=== PATIENT | female | born 1950 | race Caucasian/White ===

== ENCOUNTER → 2017-12-02 | Outpatient (CLI) | payer OTHER ==
[~2017-12-02] MED LIST: ASPI-183 PO; LEVO50TA4 PO; METF500T PO; MULT-65 PO; ROSU1TAB8 PO; VITA2000 PO; VITACAP7 PO
[2017-12-02 09:19] LABS: AUTOMATED NEUTROPHIL # 3.2 TH/MM3 (1.8-7.7); BASOPHIL # 0.1 TH/MM3 (0-0.2); BASOPHIL % 0.8 % (0.0-2.0); EOSINOPHIL # 0.2 TH/MM3 (0-0.4); EOSINOPHIL % 2.7 % (0.0-4.0); HEMATOCRIT 43.3 % (35.0-46.0); HEMOGLOBIN 14.9 GM/DL (11.6-15.3); LYMPH % 41.1 % (9.0-44.0); LYMPHOCYTE # 2.7 TH/MM3 (1.0-4.8); MEAN CELL VOLUME 90.3 FL (80.0-100.0); MEAN CORPUSCULAR HGB CONC 34.3 % (32.0-36.0); MEAN PLATELET VOLUME 8.2 FL (7.0-11.0); MONOCYTE # 0.5 TH/MM3 (0-0.9); NEUT % 48.4 % (16.0-70.0); PLATELET COUNT 261 TH/MM3 (150-450); RED CELL DISTRIBUTION WIDTH 12.9 % (11.6-17.2); WHITE BLOOD COUNT 6.7 TH/MM3 (4.0-11.0)
--- NOTE | 2017-12-02 09:47 | RADRPT ---
EXAM DATE/TIME: 12/02/2017 09:08 [place] COMPARISON: No previous studies available for comparison. INDICATIONS : Evaluate for pneumonia, pneumothorax or communicable disease. Pre op for growth on sigmoid surgery MEDICAL HISTORY : None. SURGICAL HISTORY : None. ENCOUNTER: Initial ACUITY: 1 day PAIN SCORE: 0/10 LOCATION: Bilateral chest FINDINGS: PA and lateral views of the chest demonstrate the lungs to be symmetrically aerated without evidence of mass, infiltrate or effusion. No evidence of pneumothorax. The cardiomediastinal contours are un remarkable. Osseous structures are intact. CONCLUSION: No acute cardiopulmonary disease. Brooks Courtney MD on December 02, 2017 at 9:45 Board Certified Radiologist. This report was verified electronically.
[2017-12-02 09:48] LABS: ALBUMIN 3.7 GM/DL (3.4-5.0); AST (GOT) 15 U/L (15-37); BICARBONATE 29.5 MEQ/L (21.0-32.0); BLOOD UREA NITROGEN 13 MG/DL (7-18); CALCIUM 9.5 MG/DL (8.5-10.1); CHLORIDE 106 MEQ/L (98-107); CREATININE 0.88 MG/DL (0.50-1.00); GLOMERULAR FILTRATION RATE 64 ML/MIN (>89); GLUCOSE,FASTING 136 MG/DL (74-99); SODIUM (NA) 141 MEQ/L (136-145)
[2017-12-02 09:49] LABS: BILIRUBIN, URINE NEG (NEG); BLOOD, URINE NEG (NEG); GLUCOSE,URINE NEG (NEG); KETONE, URINE NEG (NEG); NITRITE,URINE NEG (NEG); SQUAMOUS EPITHELIAL CELL URINE <1 /hpf (0-5); URINE COLOR YELLOW (YELLW/STRAW); URINE LEUKOCYTE ESTERASE NEG (NEG)
[2017-12-02 09:50] LABS: ALT (GPT) 22 U/L (10-53)
[2017-12-02 09:52] LABS: ALKALINE PHOSPHATASE 80 U/L (45-117); TOTAL BILIRUBIN ADULT 0.8 MG/DL (0.2-1.0); TOTAL PROTEIN 7.6 GM/DL (6.4-8.2)
--- NOTE | 2017-12-02 18:25 | EKG ---
Date Performed: 12/02/2017 Time Performed: 08:20:05 PTAGE: 67 years EKG: Sinus rhythm LOW QRS VOLTAGE IN PRECORDIAL LEADS POSSIBLE RIGHT VENTRICULAR CONDUCTION DELAY BORDERLINE ECG NO PREVIOUS TRACING DOCTOR: Linda Young Interpretating Date/Time 12/02/2017 18:20:33
== END ==
LOC: CPRE 08:00
PROVIDERS: ATTEND Colon & Rectal Surgery
DX: Z01.810 Encounter for preprocedural cardiovascular examination (principal); Z01.811 Encounter for preprocedural respiratory examination; Z01.812 Encounter for preprocedural laboratory examination; C18.7 Malignant neoplasm of sigmoid colon; Z79.01 Long term (current) use of anticoagulants
CPT/HCPCS: 36415; 71046; 80053; 81001; 82378; 85025; 85610; 85730; 93005

== ENCOUNTER 2017-12-04 11:31 | Inpatient (IN) | payer OTHER, MEDICARE ==
[2017-12-04] VITALS (7 sets, daily range): BP systolic 120–134; BP diastolic 58–61; PULSE 89–104; RESP 16; TEMP 98; O2SAT 92–97
[~2017-12-04] VITALS: Ht 170.2 cm; Wt 118.0 kg
[2017-12-04] MEDS ORDERED: ROCURONIUM INJ 50 MG/5 ML SYRINGE IV PUSH ONE (12:00)
[2017-12-04] MEDS ORDERED: PROPOFOL 200 MG/20 ML AMP IV ONE (12:00)
[2017-12-04] MEDS ORDERED: LACTATED RINGER'S 1000 ML INJ 2,000 ML IV ONE (12:00)
[2017-12-04] MEDS ORDERED: PHENYLEPH/NS 1000 MCG/10 ML SYR IV ONE (12:00)
[2017-12-04] MEDS ORDERED: DEXAMETHASONE SOD PHOS 4 MG/ML VIAL IV ONE (12:00)
[2017-12-04] MEDS ORDERED: PHENYLEPHRINE HCL 10 MG/ML VIAL IV ONE (12:00)
[2017-12-04] MEDS ORDERED: LIDOCAINE HCL 1% PF 5 ML SYRINGE OTHER ONE (12:00)
[2017-12-04] MEDS ORDERED: ONDANSETRON HCL 4 MG/2 ML VIAL IV ONE (12:00)
[2017-12-04] MEDS ORDERED: ceFAZolin INJ 1,000 MG VIAL IV ONE ×2 (12:00→13:57)
[2017-12-04] MEDS ORDERED: NEOSTIGMINE 5 MG/5 ML SYRINGE IV PUSH ONE (12:00)
[2017-12-04] MEDS ORDERED: GLYCOPYRROLATE 1 MG/5 ML SYRINGE IV PUSH ONE (12:00)
[2017-12-04] MEDS ORDERED: ePHEDrine/NS 25 MG/5 ML SYRINGE IV ONE (12:00)
[2017-12-04] MEDS ORDERED: METRONIDAZOLE 500 MG/100 ML ISONTONIC SOLN IV SCH (12:15)
[2017-12-04] MEDS ORDERED: POVIDONE IODINE 5% (ANTISEPSIS KIT) 4 APPLICATIONS EACH NARE PRN (12:15)
[2017-12-04] MEDS ORDERED: ceFAZolin 1,000 MG/NS 100 ML IV SCH ×2 (12:15)
[2017-12-04] MEDS ORDERED: ALVIMOPAN 12 MG CAPSULE - On Call PO SCH (12:15)
[2017-12-04] MEDS ORDERED: CHLORHEXIDINE GLUCONATE 2 % 1 PACK (2 CLOTHS) TOPICAL PRN (12:15)
[2017-12-04] MEDS ORDERED: LACTATED RINGER'S 1000 ML IV PRN (12:15)
[2017-12-04] MEDS ORDERED: SODIUM CHLORID 0.9% 500 ML IV PRN (12:15)
[2017-12-04] MEDS ORDERED: DEXT 5%-NACL 0.9% 1000 ML INJ 1,000 ML IV SCH (12:15)
[2017-12-04] MEDS ORDERED: METOPROLOL TARTRATE 25 MG TAB PO PRN (12:15)
[2017-12-04] MEDS ORDERED: MIDAZOLAM HCL 2 MG/2 ML VIAL ONE (15:29)
[2017-12-04] MEDS ORDERED: *MEPERIDINE 25 MG INJ VIAL PERIprocedural Use ONLY ONE (17:06)
[2017-12-04] MEDS ORDERED: ENALAPRILAT 1.25 MG/ML VIAL IV PUSH PRN (17:15)
[2017-12-04] MEDS ORDERED: POTASSIUM CHLOR 20 MEQ PREMIX 100 ML IV PRN (17:15)
[2017-12-04] MEDS ORDERED: ZOLPIDEM TARTRATE 5 MG TAB PO PRN (17:15)
[2017-12-04] MEDS ORDERED: DEXTROSE 50% IN WATER 50 ML VIAL(D50) IV PUSH PRN (17:15)
[2017-12-04] MEDS ORDERED: KETOROLAC TROMETHAMINE 30 MG/ML (IVP) VIAL IVP PRN (17:15)
[2017-12-04] MEDS: PCA - TOTAL MG MORPHINE DELIVERED PER SHIFT SCH ×2 (17:15→21:17)
[2017-12-04] MEDS ORDERED: POTASSIUM CHLOR 40 MEQ PREMIX 100 ML IV PRN (17:15)
[2017-12-04] MEDS ORDERED: NALOXONE HCL 0.4 MG/ML AMP IV PUSH PRN (17:15)
[2017-12-04] MEDS ORDERED: ONDANSETRON HCL 4 MG/2 ML VIAL IV PUSH PRN (17:15)
[2017-12-04] MEDS ORDERED: SODIUM CHLORIDE 0.9% FLUSH 10 ML FLUSH IV FLUSH PRN (17:15)
[2017-12-04] MEDS ORDERED: ACETAMINOPHEN/HYDROcodone 325 MG/5 MG TAB PO PRN ×2 (17:15)
[2017-12-04] MEDS ORDERED: GLUCAGON 1 MG/ML VIAL OTHER PRN (17:15)
[2017-12-04] MEDS ORDERED: BENZOCAINE 6 MG/MENTHOL 10 MG LOZENGE BUCCAL PRN (17:15)
[2017-12-04] MEDS ORDERED: Post-op Orders (for Pharmacy) XX ONE (17:15)
[2017-12-04] MEDS ORDERED: *morphine SULFATE 10 MG/ML PERIprocedure ONLY ONE ×2 (17:16→17:26)
[2017-12-04] MEDS: D5-LR + KCL 20 MEQ INJ 1,000 ML IV SCH ×2 (18:00→18:25)
[2017-12-04] MEDS ORDERED: DO NOT ADM ANY ANTICOAGULANT DRUGS PRN (18:00)
[2017-12-04 18:03] LABS: AUTOMATED NEUTROPHIL # 12.8 TH/MM3 (1.8-7.7); BASOPHIL # 0.1 TH/MM3 (0-0.2); BASOPHIL % 0.7 % (0.0-2.0); HEMOGLOBIN 11.9 GM/DL (11.6-15.3); LYMPH % 9.6 % (9.0-44.0); LYMPHOCYTE # 1.4 TH/MM3 (1.0-4.8); MEAN CELL VOLUME 90.5 FL (80.0-100.0); MEAN CORPUSCULAR HEMOGLOBIN 30.8 PG (27.0-34.0); MEAN PLATELET VOLUME 7.9 FL (7.0-11.0); MONO % 4.6 % (0.0-8.0); MONOCYTE # 0.7 TH/MM3 (0-0.9); NEUT % 85.1 % (16.0-70.0); PLATELET COUNT 220 TH/MM3 (150-450); RED BLOOD COUNT 3.86 MIL/MM3 (4.00-5.30); RED CELL DISTRIBUTION WIDTH 13.4 % (11.6-17.2)
[2017-12-04] MEDS: MORPHINE SULFATE 30 MG/30 ML PCA IV SCH (18:27)
[2017-12-04] MEDS: ceFAZolin 2 GM PREMIX 50 ML IV SCH (18:33)
[2017-12-04] MEDS: METOCLOPRAMIDE HCL 10 MG/2 ML VIAL IVS SCH (18:33)
[2017-12-04 19:07] LABS: BICARBONATE 22.2 MEQ/L (21.0-32.0); CALCIUM 7.7 MG/DL (8.5-10.1); CREATININE 0.72 MG/DL (0.50-1.00)
[2017-12-04] MEDS: metroNIDAZOLE 500 MG INJ 100 ML IV SCH (21:16)
[2017-12-04] MEDS: SODIUM CHLORIDE 0.9% FLUSH 10 ML FLUSH IV FLUSH SCH (21:18)
[2017-12-04] MEDS: FUROSEMIDE 20 MG/2 ML VIAL IV PUSH SCH (21:18)
[2017-12-04] MEDS: INSULIN NovoLIN REGULAR SUPPLEMENTAL SCALE SQ SCH (23:28)
[2017-12-05] VITALS (19 sets, daily range): BP systolic 109–146; BP diastolic 57–66; PULSE 72–106; RESP 16–20; TEMP 97.9–98.9; O2SAT 77–95
[2017-12-05] MEDS: METOCLOPRAMIDE HCL 10 MG/2 ML VIAL IVS SCH ×4 (00:18→17:19)
[2017-12-05] MEDS: ceFAZolin 2 GM PREMIX 50 ML IV SCH ×2 (02:16→08:59)
[2017-12-05] MEDS: D5-LR + KCL 20 MEQ INJ 1,000 ML IV SCH ×3 (03:24→20:46)
[2017-12-05 04:34] LABS: AUTOMATED NEUTROPHIL # 13.6 TH/MM3 (1.8-7.7); HEMATOCRIT 38.3 % (35.0-46.0); HEMOGLOBIN 12.8 GM/DL (11.6-15.3); LYMPH % 4.6 % (9.0-44.0); LYMPHOCYTE # 0.7 TH/MM3 (1.0-4.8); MEAN CELL VOLUME 90.2 FL (80.0-100.0); MEAN CORPUSCULAR HEMOGLOBIN 30.2 PG (27.0-34.0); MEAN CORPUSCULAR HGB CONC 33.5 % (32.0-36.0); MEAN PLATELET VOLUME 8.1 FL (7.0-11.0); MONO % 6.4 % (0.0-8.0); PLATELET COUNT 247 TH/MM3 (150-450); RED BLOOD COUNT 4.24 MIL/MM3 (4.00-5.30); RED CELL DISTRIBUTION WIDTH 13.4 % (11.6-17.2); WHITE BLOOD COUNT 15.3 TH/MM3 (4.0-11.0)
[2017-12-05 04:52] LABS: BICARBONATE 27.8 MEQ/L (21.0-32.0); CREATININE 1.13 MG/DL (0.50-1.00)
[2017-12-05] MEDS: PCA - TOTAL MG MORPHINE DELIVERED PER SHIFT SCH ×3 (06:00→22:00)
[2017-12-05] MEDS: LEVOTHYROXINE SODIUM 50 MCG TAB PO SCH (06:09)
[2017-12-05] MEDS: metroNIDAZOLE 500 MG INJ 100 ML IV SCH ×2 (06:10→13:14)
[2017-12-05] MEDS: MORPHINE SULFATE 30 MG/30 ML PCA IV SCH (06:39)
[2017-12-05] MEDS: INSULIN NovoLIN REGULAR SUPPLEMENTAL SCALE SQ SCH ×4 (08:00→20:51)
[2017-12-05] MEDS: FUROSEMIDE 20 MG/2 ML VIAL IV PUSH SCH ×2 (08:58→20:41)
[2017-12-05] MEDS: PANTOPRAZOLE SODIUM 40 MG VIAL IVP SCH (08:59)
[2017-12-05] MEDS: ALVIMOPAN 12 MG CAPSULE - Post-op dosing PO SCH ×2 (08:59→20:40)
[2017-12-05] MEDS: ATORVASTATIN 40 MG TAB PO SCH (08:59)
[2017-12-05] MEDS: SODIUM CHLORIDE 0.9% FLUSH 10 ML FLUSH IV FLUSH SCH ×2 (09:00→20:41)
--- NOTE | 2017-12-05 13:58 | PD.WCN.NOT ---
Wound Consult Description: Consult for Ostomy Teaching per Dr Marte Communicated with: Patient Recommendation: Begin emptying your pouch when 1/3-1/2 full of effluent (stool). Assess for stoma color and output. Additional Information: Patient seen on for ostomy assessment, teaching, and delivery of educational materials for reinforcement of topics discussed during teaching session. Ostomy Type: Ileostomy Surgeon: Alvaro Marte MD Date of Surgery: Dec 04, 2017 Complete: Starter kit ([facility] sent out start kit today via 2 day air after verbal consent was obtained), Education materials Educated patient on: Stoma appearance Stoma size Peristomal skin care Appliances available How to open and close pouch When to empty pouch When and how often to change entire pouching system When to seek medical attention Chewing food thoroughly Drinking plenty of fluids to avoid dehydration Additional information Stoma visualized on right side abdomen is red, moist, moderately protruding, measuring ~1" with lumen noted in center and functioning with dark green liquid effluent noted in pouch. Appliance is intact and noted without leaks. Patient was shown how to open and close pouch at the bottom and release air from the top of the pouch at the flange of the 2 piece anderson appliance. There is a binder in place. Patient will be followed up on Friday for further teaching and appliance change using 2 1/4" moldable appliance. Hiral Vences [facility] Dec 05, 2017 13:58
--- NOTE | 2017-12-05 15:04 | HHI.PR ---
Subjective Remarks No N or V. No BMs. Discussed surgical findings with patient. Says left arm has some numbness and tingling. Objective Vital Signs Date Time Temp Pulse Resp B/P (MAP) Pulse Ox O2 Delivery O2 Flow Rate FiO2 12/05/17 13:11 20 12/05/17 12:00 72 12/05/17 11:00 96 12/05/17 11:00 97.9 83 20 122/59 (80) 95 12/05/17 10:00 84 12/05/17 09:00 90 12/05/17 08:29 95 21 12/05/17 08:00 78 12/05/17 07:15 98.8 89 20 122/58 (79) 94 12/05/17 07:15 73 12/05/17 06:39 16 12/05/17 06:00 16 12/05/17 05:00 76 12/05/17 04:00 78 12/05/17 03:00 93 12/05/17 03:00 98.1 98 16 109/57 (74) 77 12/05/17 02:00 92 12/05/17 01:00 96 12/05/17 00:00 106 12/04/17 23:10 98.0 98 16 120/58 (78) 94 12/04/17 23:00 95 12/04/17 22:00 104 12/04/17 21:17 16 12/04/17 21:00 96 12/04/17 20:05 97 Nasal Cannula 3.00 12/04/17 20:00 89 12/04/17 19:35 98.0 92 16 134/61 (85) 92 12/04/17 18:42 18 12/04/17 18:41 18 12/04/17 18:39 18 12/04/17 18:27 15 12/04/17 18:00 97.6 80 16 120/65 (83) 95 Nasal Cannula 2 12/04/17 17:45 76 15 119/62 (81) 94 Nasal Cannula 2 12/04/17 17:30 78 15 116/63 (80) 94 Nasal Cannula 2 12/04/17 17:21 15 12/04/17 17:15 77 14 108/60 (76) 100 Nasal Cannula 3 12/04/17 17:00 80 14 109/59 (76) 98 Nasal Cannula 3 12/04/17 16:55 97.7 75 16 112/53 (72) 96 Nasal Cannula 3 I/O 12/04/17 12/04/17 12/04/17 12/05/17 12/05/17 12/05/17 07:00 15:00 23:00 07:00 15:00 23:00 Intake Total 4060 ml 100 ml Output Total 585 ml 1650 ml Balance 3475 ml -1550 ml Intake Oral 100 ml IV Total 1260 ml Other 2800 ml Output Urine Total 325 ml 1550 ml Drainage Total 60 ml 100 ml Estimated Blood Loss 200 ml Result Diagram: 12/05/17 04112/05/17410 Objective Remarks VS-S Abd: obese,soft,ileostomy pink Ext: Left arm seems OK. Radial pulse intact. C/O swelling possibly from IV. Will D/C heplock and see if she improves. I&Os-improved Labs-OK Assessment and Plan Assessment and Plan Stable POD#1 Transfer to Decrease IVs D/C tele D/C best and PERSONAL CARE WORKER in Alvaro Marte MD Dec 05, 2017 15:04
[2017-12-05] MEDS ORDERED: ALVIMOPAN 12 MG CAPSULE PO SCH (21:00)
[2017-12-06] VITALS (7 sets, daily range): BP systolic 126–162; BP diastolic 60–73; PULSE 86–102; RESP 16–18; TEMP 98–98.9; O2SAT 92–98
[2017-12-06] MEDS: METOCLOPRAMIDE HCL 10 MG/2 ML VIAL IVS SCH ×5 (00:37→23:31)
[2017-12-06 04:43] LABS: BASOPHIL % 0.2 % (0.0-2.0); EOSINOPHIL % 0.2 % (0.0-4.0); HEMATOCRIT 33.1 % (35.0-46.0); HEMOGLOBIN 11.2 GM/DL (11.6-15.3); LYMPH % 11.6 % (9.0-44.0); LYMPHOCYTE # 1.7 TH/MM3 (1.0-4.8); MEAN CELL VOLUME 89.6 FL (80.0-100.0); MEAN CORPUSCULAR HEMOGLOBIN 30.2 PG (27.0-34.0); MEAN CORPUSCULAR HGB CONC 33.7 % (32.0-36.0); MEAN PLATELET VOLUME 7.8 FL (7.0-11.0); MONO % 7.6 % (0.0-8.0); MONOCYTE # 1.1 TH/MM3 (0-0.9); NEUT % 80.4 % (16.0-70.0); PLATELET COUNT 203 TH/MM3 (150-450); RED CELL DISTRIBUTION WIDTH 13.3 % (11.6-17.2)
[2017-12-06 05:05] LABS: BICARBONATE 29.4 MEQ/L (21.0-32.0); CALCIUM 8.2 MG/DL (8.5-10.1); CREATININE 0.84 MG/DL (0.50-1.00)
[2017-12-06] MEDS: PCA - TOTAL MG MORPHINE DELIVERED PER SHIFT SCH ×3 (05:34→22:00)
[2017-12-06] MEDS: LEVOTHYROXINE SODIUM 50 MCG TAB PO SCH (05:34)
[2017-12-06] MEDS: INSULIN NovoLIN REGULAR SUPPLEMENTAL SCALE SQ SCH ×4 (08:00→20:27)
[2017-12-06] MEDS: PANTOPRAZOLE SODIUM 40 MG VIAL IVP SCH (09:22)
[2017-12-06] MEDS: FUROSEMIDE 20 MG/2 ML VIAL IV PUSH SCH ×2 (09:22→20:19)
[2017-12-06] MEDS: ALVIMOPAN 12 MG CAPSULE - Post-op dosing PO SCH ×2 (09:23→20:19)
[2017-12-06] MEDS: ATORVASTATIN 40 MG TAB PO SCH (09:23)
[2017-12-06] MEDS: MORPHINE SULFATE 30 MG/30 ML PCA IV SCH (09:39)
--- NOTE | 2017-12-06 12:07 | HHI.PR ---
Subjective Remarks POD#2 s/p LAR, diversion sore Objective Vital Signs Date Time Temp Pulse Resp B/P (MAP) Pulse Ox O2 Delivery O2 Flow Rate FiO2 12/06/17 09:39 18 12/06/17 08:00 98.1 96 18 146/65 (92) 98 12/06/17 05:34 18 12/06/17 05:05 93 Nasal Cannula 2.00 12/06/17 04:00 98.9 95 16 145/66 (92) 92 12/06/17 00:00 98.9 86 16 126/60 (82) 94 12/05/17 22:00 16 12/05/17 20:00 98.9 84 16 146/66 (92) 93 12/05/17 16:00 98.1 85 20 134/61 (85) 95 12/05/17 16:00 84 12/05/17 15:00 88 12/05/17 14:00 94 12/05/17 13:11 20 12/05/17 13:00 92 I/O 12/05/17 12/05/17 12/05/17 12/06/17 12/06/17 12/06/17 07:00 15:00 23:00 07:00 15:00 23:00 Intake Total 100 ml 4260 ml 720 ml Output Total 1650 ml 1270 ml 1620 ml Balance -1550 ml 2990 ml -900 ml Intake Oral 100 ml 1260 ml 720 ml IV Total 3000 ml Output Urine Total 1550 ml 1250 ml 1600 ml Drainage Total 100 ml 20 ml 20 ml # Bowel Movements 0 Result Diagram: 12/06/17 0424 12/06/17 0424 Objective Remarks Abdomen soft, nondistended Dressing c/d/i Assessment and Plan Assessment and Plan Mobilize Advance diet Decrease IVF Amada Watson MD Dec 06, 2017 12:07
[2017-12-06] MEDS: POTASSIUM CHLORIDE INJ 20 MEQ in LACTATED RINGER'S 1000 ML INJ 1,000 ML IV SCH (13:48)
[2017-12-06] MEDS: SODIUM CHLORIDE 0.9% FLUSH 10 ML FLUSH IV FLUSH SCH ×2 (15:56→20:19)
[2017-12-07] VITALS: BP 187/69; PULSE 106; RESP 20; TEMP 96.9; O2SAT 92
[2017-12-07] MEDS: POTASSIUM CHLORIDE INJ 20 MEQ in LACTATED RINGER'S 1000 ML INJ 1,000 ML IV SCH (02:44)
[2017-12-07 04:00] VITALS: BP 157/74; PULSE 101; RESP 20; TEMP 98.5; O2SAT 92
[2017-12-07] MEDS: METOCLOPRAMIDE HCL 10 MG/2 ML VIAL IVS SCH ×4 (05:25→22:25)
[2017-12-07] MEDS: LEVOTHYROXINE SODIUM 50 MCG TAB PO SCH (05:25)
[2017-12-07] MEDS: PCA - TOTAL MG MORPHINE DELIVERED PER SHIFT SCH (05:25)
[2017-12-07 08:00] VITALS: BP 178/82; PULSE 100; RESP 18; TEMP 97.9; O2SAT 93
[2017-12-07] MEDS: FUROSEMIDE 20 MG/2 ML VIAL IV PUSH SCH (08:39)
[2017-12-07] MEDS: SODIUM CHLORIDE 0.9% FLUSH 10 ML FLUSH IV FLUSH SCH ×2 (08:39→20:09)
[2017-12-07] MEDS: INSULIN NovoLIN REGULAR SUPPLEMENTAL SCALE SQ SCH ×4 (08:39→20:08)
[2017-12-07] MEDS: ALVIMOPAN 12 MG CAPSULE - Post-op dosing PO SCH ×2 (08:40→20:09)
[2017-12-07] MEDS: ATORVASTATIN 40 MG TAB PO SCH (08:40)
[2017-12-07] MEDS: PANTOPRAZOLE SODIUM 40 MG VIAL IVP SCH (08:40)
--- NOTE | 2017-12-07 10:21 | HHI.PR ---
Subjective Remarks POD#3 s/p LAR, diversion more comfortable Objective Vital Signs Date Time Temp Pulse Resp B/P (MAP) Pulse Ox O2 Delivery O2 Flow Rate FiO2 12/07/17 08:00 97.9 100 18 178/82 (114) 93 12/07/17 05:25 20 12/07/17 04:00 98.5 101 20 157/74 (101) 92 12/07/17 00:00 96.9 106 20 187/69 (108) 92 12/06/17 22:00 16 12/06/17 20:00 98.5 102 18 162/73 (102) 93 12/06/17 16:13 98.0 91 18 161/69 (99) 95 12/06/17 15:55 18 12/06/17 14:00 18 12/06/17 12:00 98.7 91 18 148/70 (96) 95 12/06/17 12:00 98.7 91 18 148/70 (96) 95 I/O 12/06/17 12/06/17 12/06/17 12/07/17 12/07/17 12/07/17 07:00 15:00 23:00 07:00 15:00 23:00 Intake Total 720 ml 875 ml 720 ml 1330 ml Output Total 1620 ml 3945 ml 3315 ml Balance -900 ml 875 ml -3225 ml -1985 ml Intake Oral 720 ml 720 ml 330 ml IV Total 875 ml 1000 ml Output Urine Total 1600 ml 3900 ml 3300 ml Stool Total 25 ml Drainage Total 20 ml 20 ml 15 ml Result Diagram: 12/06/17 0424 12/06/17 0424 Objective Remarks Abdomen soft, nondistended wound clean ANNA serosanguinous Stoma pink Assessment and Plan Assessment and Plan Mobilize Advance diet HL IV d/c LEAK GANG SUPERVISOR, estephania, Amada Multani MD Dec 07, 2017 10:21
[2017-12-07 12:00] VITALS: BP 143/67; PULSE 94; RESP 16; TEMP 96.1; O2SAT 98
--- NOTE | 2017-12-07 12:07 | MP ---
cc: MD MARTE J. TIMOTHY PATEL, KETUL R. MD DATE OF SURGERY: 12/04/2017. PREOPERATIVE DIAGNOSIS: Rectal carcinoma. POSTOPERATIVE DIAGNOSIS: 1. Sessile rectal carcinoma. 2. Cholelithiasis. 3. Rectovaginal septum mass. OPERATIVE PROCEDURE PERFORMED: 1. Rectosigmoidectomy with low anterior resection. 2. Total abdominal hysterectomy and bilateral salpingo-oophorectomy with resection of posterior vaginal wall. 3. Cholecystectomy. 4. Diverting loop ileostomy. SURGEON: Alvaro Marte M.D. LEAD DESIGNER: Lawrence Muñoz MD. ANESTHESIA: General endotracheal anesthesia. ESTIMATED BLOOD LOSS: 200 cc. OPERATING TIME: Two hours and thirty-five minutes. OPERATIVE FINDINGS: This patient was originally seen by Dr. Muñoz and found to have a 3 cm rectosigmoid mass. He felt that it was a benign lesion and the biopsies were benign but with some dysplasia. He sent her to Dr. Contreras Nava for possible endomucosal resection and Dr. Nava further excised this lesion but did not do endomucosal resection and it came back adenocarcinoma. For this reason, rectosigmoidectomy was recommended. Preoperative CEA was 1.2. At surgery, exploration of the abdominal cavity revealed that the liver was palpably normal. The gallbladder had multiple gallstones present and therefore a cholecystectomy was done as well. Also, the rectum had a tattoo above the cul-de-sac that could be seen in the pericolonic fat but below this right in the cul-de-sac was a nodular lesion anteriorly and almost appeared as if it was the rectal carcinoma growing through the bowel wall into the back wall of the upper vagina just below the cervix. For this reason, this upper posterior wall of the vagina was excised en bloc with the rectum and the rectal dissection was taken lower into the lower third of the rectum. Therefore a low double stapled anastomosis was done. Because of the lowness of the anastomosis, it was elected to do a diverting loop ileostomy. Because of the vaginal wall excision posteriorly, we decided to do a total abdominal hysterectomy and bilateral salpingo- oophorectomy to facilitate vaginal closure. The remainder of the abdominal exploration including the colon and small bowel was all palpably normal. A diverting loop ileostomy was done as mentioned. DESCRIPTION OF THE PROCEDURE IN DETAIL: The patient was placed on the table in the supine position. After general endotracheal anesthesia, the legs were placed in the perineolithotomy position. The abdomen and perineum were prepped and draped in the usual manner. A transverse infraumbilical skin incision was made and carried down through the subcutaneous tissue and rectus muscles and the peritoneal cavity was entered with the above-mentioned findings. The sigmoid colon was mobilized along its peritoneal reflection as was the descending colon up to but not including the splenic flexure. The splenic flexure of the transverse colon was not mobilized as she a long redundant sigmoid colon. The lesion in the cul-de-sac was palpated and it was initially thought that this was the nodular rectal cancer that had been partially excised at colonoscopy by Dr. Nava. There was a tattoo above this area but the actual rectal cancer residual was above this area of this nodule. After the specimen was removed, we ascertained this. Nevertheless, the inferior mesenteric artery was doubly clamped, cut and doubly ligated with 0 Vicryl ligature as was the inferior mesenteric vein. The retrorectal space was entered and the dissection was taken down posteriorly to the pelvic floor and then laterally as well. Laterally, the pelvic peritoneum was incised and lateral stalks were mobilized from the pelvic sidewall and the dissection was taken down to the cul-de-sac. At the cul-de-sac, we palpated this nodule anteriorly and the peritoneum anterior to this nodule was incised and the dissection was taken down the back wall of the vagina trying to separate this nodular area from the back wall of the vagina. In doing so, the vagina was entered above this nodule and it was felt that this area had grown into the back wall of the vagina and the back wall the vagina was excised en bloc. The lower rectum was then mobilized all the way down to the pelvic floor and the mesorectum was clamped, cut and ligated. Once the lower third of the rectum was cleared, a TX 60 Green staple height stapler was used in the pelvis and the rectum was divided above the staple line. Because the vagina had a significant upper posterior wall excised, we decided to do a total abdominal hysterectomy and bilateral salpingo-oophorectomy. The left and right ovarian vessels were clamped, cut and ligated with 0 Vicryl ligatures. The left and right ureters were identified and protected at all times during all the dissection. The round ligament was divided with electrocautery and then the uterine vessels were clamped with Carlito clamps and suture ligated with 0 Vicryl ligatures until we reached the cervix anteriorly. The anterior vagina was then divided and then the vagina was closed with interrupted 0 Vicryl [id number] sutures fully closing the vaginal cuff. Next, a point was chosen in the sigmoid colon for division and the remainder of the mesentery was clamped, cut and ligated and the sigmoid colon was cleared and then the pursestring stapling device was placed and the bowel was divided and the specimen was removed from the table. The specimen was opened and the rectal cancer residual was seen in the posterior wall superior to the nodular lesion anteriorly in the rectovaginal septum. The distance below the rectal tumor to the rectal division point was approximately 8 cm. The anastomosis was probably created at about 5 cm of the rectum. Next, Dr. Muñoz placed the 33 EEA instrument into the rectum and the trocar was brought out posterior to the staple line with one half the staple line fully in the circular EEA so that there was only one crossing staple line. The instrument was then connected, closed and fired creating the circular anastomosis. The donuts were intact and quite thick as was the rectal wall. Dr. Muñoz then did proctosigmoidoscopy examination insufflating air into the rectum with saline solution and the pelvis and no air leaks were identified. Once this was done, there was no tension on the anastomosis. The anastomosis was inspected and the blood supply was excellent. Because the lowness of the anastomosis, we determined that we were going to do a diverting ileostomy to protect the anastomosis. A point in the terminal ileum was chosen and an opening in the mesentery was made to be able to create the loop ileostomy. A stoma site was made in the right upper quadrant in the lateral portion of the rectus muscle above the transverse incision. I then turned my attention to the gallbladder and traction was placed on the fundus of the gallbladder and the dissection of the gallbladder was taken down from above downward with electrocautery of the liver bed. The cystic artery was quite small and was seen and was divided with electrocautery and then the cystic duct was clamped, cut and ligated with 0 Vicryl ligature. The gallbladder was removed from the table. The liver bed was treated with electrocautery for hemostasis. The abdominal cavity was irrigated thoroughly with three to four liters of saline solution and aspirated dry. Hemostasis was maintained throughout with electrocautery and ligature. There was a lot of fat and appendices epiploica around the sigmoid colon at the area of the anastomosis, protecting the vaginal cuff from the area of the anastomosis so no omental flap was brought down from her transverse colon. The bowels were replaced in the abdominal cavity in an lead cook manner. The omentum was placed over the bowels and then the abdominal cavity was closed in layers using a double-stranded #1 PDS for the posterior rectus sheath and the rectus muscles were irrigated thoroughly with a liter of saline solution, aspirated dry and then the anterior rectus sheath was closed with a double-stranded #1 PDS as well. The subcutaneous tissue was irrigated thoroughly with a liter of saline solution and the skin was closed with skin perla. We next matured the ileostomy in an end loop fashion stapling closed the distal limb of the ileostomy with a TX 60 blue staple height stapler and then the ileostomy was matured with interrupted 3-0 Vicryl sutures. A 57-mm appliance was placed and then the dressing was applied. It should be mentioned that a flat #10 Jhoan drain was placed in the pelvis posterior to the rectal dissection and brought out through a separate stab wound in the right lower quadrant. Sponge, needle and instrument counts were reported as correct. The estimated blood loss was 200 mL. Operating time was two hours and twenty-five minutes. MD NIKKY Pagan/MELANIE /5:25 PM /11:44 AM [place]
[2017-12-07 16:00] VITALS: BP 149/67; PULSE 89; RESP 16; TEMP 96.6; O2SAT 96
[2017-12-07 20:00] VITALS: BP 139/58; PULSE 93; RESP 18; TEMP 96.9; O2SAT 94
[2017-12-08] VITALS: BP 170/78; PULSE 104; RESP 20; TEMP 97.3; O2SAT 95
[2017-12-08 04:00] VITALS: BP 167/74; PULSE 98; RESP 18; TEMP 99; O2SAT 93
[2017-12-08] MEDS: LEVOTHYROXINE SODIUM 50 MCG TAB PO SCH (04:50)
[2017-12-08] MEDS: METOCLOPRAMIDE HCL 10 MG/2 ML VIAL IVS SCH ×3 (04:51→16:39)
[2017-12-08 08:00] VITALS: BP 132/60; PULSE 100; RESP 17; TEMP 98.1; O2SAT 94
[2017-12-08] MEDS: ATORVASTATIN 40 MG TAB PO SCH (09:03)
[2017-12-08] MEDS: PANTOPRAZOLE SODIUM 40 MG VIAL IVP SCH (09:03)
[2017-12-08] MEDS: ALVIMOPAN 12 MG CAPSULE - Post-op dosing PO SCH (09:03)
[2017-12-08] MEDS: SODIUM CHLORIDE 0.9% FLUSH 10 ML FLUSH IV FLUSH SCH ×2 (09:03→21:00)
[2017-12-08] MEDS: INSULIN NovoLIN REGULAR SUPPLEMENTAL SCALE SQ SCH ×4 (09:29→21:00)
--- NOTE | 2017-12-08 11:17 | HHI.FF ---
Face to Face Verification Diagnosis: (1) Cancer of rectum (2) Ileostomy in place Home Health Nursing Order: Medical education Diabetic education Wound care and dressing changes Nursing assessment with vital signs Instructions: Ileostomy care,teaching and supplies I have seen patient Mary Beth Anne on 12/08/17. My clinical findings support the need for the requested home health care services because: Ltd mobility - disease progression Deconditioned w/ increased weakness Med compliance is questionable Limited ability to care for self Need for psychosocial assistance I certify that my clinical findings support that this patient is homebound because: Post-op weakness Unsteady gait/balance Unsafe to leave home unassisted Need for psychosocial assistance Unable to use public transportation Alvaro Marte MD Dec 08, 2017 11:17
--- NOTE | 2017-12-08 11:21 | HHI.PR ---
Subjective Remarks No N or V. Stooling from Ileostomy Objective Vital Signs Date Time Temp Pulse Resp B/P (MAP) Pulse Ox O2 Delivery O2 Flow Rate FiO2 12/08/17 08:00 98.1 100 17 132/60 (84) 94 12/08/17 04:00 99.0 98 18 167/74 (105) 93 12/08/17 00:00 97.3 104 20 170/78 (108) 95 12/07/17 20:00 96.9 93 18 139/58 (85) 94 12/07/17 16:00 96.6 89 16 149/67 (94) 96 12/07/17 12:00 96.1 94 16 143/67 (92) 98 I/O 12/07/17 12/07/17 12/07/17 12/08/17 12/08/17 12/08/17 07:00 15:00 23:00 07:00 15:00 23:00 Intake Total 1330 ml 600 ml Output Total 3315 ml 25 ml 1700 ml 1300 ml Balance -1985 ml -25 ml -1100 ml -1300 ml Intake Oral 330 ml 600 ml IV Total 1000 ml Output Urine Total 3300 ml 1400 ml 900 ml Stool Total 300 ml 400 ml Drainage Total 15 ml 25 ml # Voids 1 # Bowel Movements 0 Result Diagram: 12/06/1742312/06/17423 Objective Remarks VS-S Abd: obese,soft,ileostomy pink I&Os-OK Assessment and Plan Assessment and Plan Stable POD#4 Ileostomy teaching, [facility], D/C tomorrow AM. Alvaro Marte MD Dec 08, 2017 11:21
[2017-12-08 12:00] VITALS: BP 140/67; PULSE 94; RESP 17; TEMP 98.2; O2SAT 97
--- NOTE | 2017-12-08 12:56 | PD.WCN.NOT ---
Wound Consult Description: Consult for Ostomy Teaching per Dr Marte Communicated with: Dr Marte Patient SIRISHA Huang, RN Recommendation: Empty your pouch when 1/3-1/2 full of effluent (stool). Assess for stoma color and output. Drink plenty of fluids and eat solid foods to help thicken stool. Additional Information: Patient seen from 10:45-11:45 today for ostomy assessment, teaching, and pouching system change. Ostomy Type: Ileostomy Surgeon: Alvaro Marte MD Date of Surgery: Dec 04, 2017 Complete: Starter kit ([facility] sent out start kit today via 2 day air after verbal consent was obtained), Education materials, Other (Entire appliance change with patient observing and assisting ) Educated patient on: Taking her time with the appliance change. Monitoring ostomy output and color of ileostomy. Ensuring the peristomal skin is cleansed well and dried thoroughly prior to applying a new adhesive barrier (wafer). Staying hydrated. Eating solid foods to help thicken stool. Removing wafer if there is burning or itching sensations underneath appliance. Emptying pouch every 2-3 hours (approximately 6-7 times daily). Changing appliance every 3-5 days and PRN. Additional information Patient seen on for ostomy assessment and teaching with first pouching system change. Stoma is visualized on the right lower abdomen measuring 1" round , red, moist, moderately protruding, mildly edematous, functioning with soft green/yellow liquid effluent from lumen noted at 6 o'clock. Mucocutaneous junction is noted with sutures circumferentially, otherwise unremarkable. Peristomal skin is intact and unremarkable. There are perla with approximated edges noted to lower transverse abdominal surgical site with no drainage and unremarkable periwound. Patient was asked if she would like to sit up on the side of the bed, sit over the toilet, or linoleum layer front of the mirror in the restroom for the appliance change. Patient stated that we change the appliance in the bathroom with her standing in front of the mirror for visualization. Patient was assisted out of bed with walker. Patient arrived to bathroom and states feeling light headed and assisted to toilet safely. Patient proceeded to use the restroom and tried standing again. Patient states still being lightheaded and was assisted safely back to her bed where she sat on the edge for the appliance change. Dr Marte visited patient during appliance change. Stoma was functioning during the entire appliance change. Hiral Vences [facility] Dec 08, 2017 12:56
[2017-12-08 16:00] VITALS: BP 125/81; PULSE 84; RESP 17; TEMP 96.4; O2SAT 95
[2017-12-08] MEDS: NS + KCL 20 MEQ INJ 1,000 ML IV SCH (16:39)
[2017-12-08 20:00] VITALS: BP 148/67; PULSE 94; RESP 18; TEMP 97.8; O2SAT 96
[2017-12-09] VITALS: BP 140/65; PULSE 98; RESP 18; TEMP 96.2; O2SAT 98
[2017-12-09] MEDS: METOCLOPRAMIDE HCL 10 MG/2 ML VIAL IVS SCH ×2 (00:08→05:44)
[2017-12-09] MEDS: NS + KCL 20 MEQ INJ 1,000 ML IV SCH (02:40)
[2017-12-09] MEDS: LEVOTHYROXINE SODIUM 50 MCG TAB PO SCH (05:44)
[2017-12-09 07:48] LABS: AUTOMATED NEUTROPHIL # 8.3 TH/MM3 (1.8-7.7); BASOPHIL # 0.1 TH/MM3 (0-0.2); BASOPHIL % 0.4 % (0.0-2.0); EOSINOPHIL # 0.3 TH/MM3 (0-0.4); EOSINOPHIL % 2.2 % (0.0-4.0); HEMATOCRIT 37.1 % (35.0-46.0); HEMOGLOBIN 12.9 GM/DL (11.6-15.3); LYMPH % 22.9 % (9.0-44.0); LYMPHOCYTE # 2.9 TH/MM3 (1.0-4.8); MEAN CORPUSCULAR HEMOGLOBIN 30.6 PG (27.0-34.0); MEAN CORPUSCULAR HGB CONC 34.8 % (32.0-36.0); MEAN PLATELET VOLUME 7.9 FL (7.0-11.0); MONOCYTE # 1.1 TH/MM3 (0-0.9); NEUT % 65.5 % (16.0-70.0); PLATELET COUNT 346 TH/MM3 (150-450); RED BLOOD COUNT 4.22 MIL/MM3 (4.00-5.30); RED CELL DISTRIBUTION WIDTH 13.1 % (11.6-17.2); WHITE BLOOD COUNT 12.6 TH/MM3 (4.0-11.0)
[2017-12-09 08:00] VITALS: BP 142/73; PULSE 94; RESP 18; TEMP 97.4; O2SAT 98
[2017-12-09 08:02] LABS: BICARBONATE 28.2 MEQ/L (21.0-32.0); CALCIUM 8.8 MG/DL (8.5-10.1); CREATININE 0.85 MG/DL (0.50-1.00)
[2017-12-09] MEDS: PANTOPRAZOLE SODIUM 40 MG VIAL IVP SCH (08:08)
[2017-12-09] MEDS: ATORVASTATIN 40 MG TAB PO SCH (08:08)
[2017-12-09] MEDS: INSULIN NovoLIN REGULAR SUPPLEMENTAL SCALE SQ SCH (08:09)
[2017-12-09] MEDS: SODIUM CHLORIDE 0.9% FLUSH 10 ML FLUSH IV FLUSH SCH (08:09)
== END 2017-12-09 08:59 | disposition home health service (06) | DRG 330 ==
LOC: HSDI 11:31 → HCPC 18:13 → N07B 12-06 22:57
PROVIDERS: ADMIT Colon & Rectal Surgery; ATTEND Colon & Rectal Surgery
PROC: 0DBP0ZZ Excision of Rectum, Open Approach (ICD-10-PCS; 2017-12-04)
PROC: 0D1B0Z4 Bypass Ileum to Cutaneous, Open Approach (ICD-10-PCS; 2017-12-04)
PROC: 0UT90ZZ Resection of Uterus, Open Approach (ICD-10-PCS; 2017-12-04)
PROC: 0UT20ZZ Resection of Bilateral Ovaries, Open Approach (ICD-10-PCS; 2017-12-04)
PROC: 0UT70ZZ Resection of Bilateral Fallopian Tubes, Open Approach (ICD-10-PCS; 2017-12-04)
PROC: 0UBG0ZZ Excision of Vagina, Open Approach (ICD-10-PCS; 2017-12-04)
PROC: 0UTC0ZZ Resection of Cervix, Open Approach (ICD-10-PCS; 2017-12-04)
PROC: 0FT40ZZ Resection of Gallbladder, Open Approach (ICD-10-PCS; 2017-12-04)
PROC: 0DJD8ZZ Inspection of Lower Intestinal Tract, Via Natural or Artificial Opening Endoscopic (ICD-10-PCS; 2017-12-04)
PROC: 0DBN0ZZ Excision of Sigmoid Colon, Open Approach (ICD-10-PCS; principal; 2017-12-04 13:39)
DX: C20 Malignant neoplasm of rectum (principal); K80.10 Calculus of gallbladder with chronic cholecystitis without obstruction; Z68.41 Body mass index [BMI] 40.0-44.9, adult; E78.5 Hyperlipidemia, unspecified; E11.9 Type 2 diabetes mellitus without complications; E03.9 Hypothyroidism, unspecified; E66.9 Obesity, unspecified; Z87.891 Personal history of nicotine dependence
CPT/HCPCS: 36415; 71046; 80048; 80053; 81001; 82378; 82948; 85025; 85610; 85730; 86850; 86900; 86901; 88304; 88307; 88309; 93005; 94150; C9113; J0690; J1100; J1885; J1940; J2175; J2250; J2270; J2370; J2405; J2710; J2765; J3010; J3480; J7120

== ENCOUNTER 2018-03-10 11:03 | Inpatient (IN) | payer OTHER, MEDICARE ==
[~2018-03-10] VITALS: Ht 170.2 cm; Wt 106.3 kg
[2018-03-10] MEDS ORDERED: METOPROLOL TARTRATE 25 MG TAB PO PRN (11:45)
[2018-03-10] MEDS ORDERED: LACTATED RINGER'S 1000 ML IV PRN (11:45)
[2018-03-10] MEDS ORDERED: CHLORHEXIDINE GLUCONATE 2 % 1 PACK (2 CLOTHS) TOPICAL PRN (11:45)
[2018-03-10] MEDS ORDERED: METRONIDAZOLE 500 MG/100 ML ISONTONIC SOLN IV SCH (11:45)
[2018-03-10] MEDS ORDERED: POVIDONE IODINE 5% (ANTISEPSIS KIT) 4 APPLICATIONS EACH NARE PRN (11:45)
[2018-03-10] MEDS ORDERED: ALVIMOPAN 12 MG CAPSULE - On Call PO SCH (11:45)
[2018-03-10] MEDS ORDERED: SODIUM CHLORID 0.9% 500 ML IV PRN (11:45)
[2018-03-10] MEDS ORDERED: ceFAZolin 1,000 MG/NS 100 ML IV SCH ×2 (11:45)
[2018-03-10] MEDS ORDERED: GLYCOPYRROLATE 1 MG/5 ML SYRINGE IV PUSH ONE (12:00)
[2018-03-10] MEDS ORDERED: LIDOCAINE HCL 1% PF 5 ML SYRINGE OTHER ONE (12:00)
[2018-03-10] MEDS ORDERED: NORMOSOL R INJ 1,000 ML IV ONE (12:00)
[2018-03-10] MEDS ORDERED: ROCURONIUM INJ 50 MG/5 ML SYRINGE IV PUSH ONE (12:00)
[2018-03-10] MEDS ORDERED: NEOSTIGMINE 5 MG/5 ML SYRINGE IV PUSH ONE (12:00)
[2018-03-10] MEDS ORDERED: PROPOFOL 200 MG/20 ML AMP IV ONE (12:00)
[2018-03-10] MEDS ORDERED: ONDANSETRON HCL 4 MG/2 ML VIAL IV PUSH ONE (12:00)
[2018-03-10] MEDS ORDERED: DEXAMETHASONE SOD PHOS 4 MG/ML VIAL IV ONE (12:00)
[2018-03-10 12:27] LABS: AUTOMATED NEUTROPHIL # 5.1 TH/MM3 (1.8-7.7); BASOPHIL # 0.1 TH/MM3 (0-0.2); BASOPHIL % 0.7 % (0.0-2.0); EOSINOPHIL # 0.2 TH/MM3 (0-0.4); EOSINOPHIL % 2.1 % (0.0-4.0); HEMATOCRIT 41.6 % (35.0-46.0); HEMOGLOBIN 14.1 GM/DL (11.6-15.3); LYMPHOCYTE # 1.6 TH/MM3 (1.0-4.8); MEAN CELL VOLUME 87.3 FL (80.0-100.0); MEAN CORPUSCULAR HEMOGLOBIN 29.5 PG (27.0-34.0); MEAN CORPUSCULAR HGB CONC 33.8 % (32.0-36.0); MEAN PLATELET VOLUME 7.7 FL (7.0-11.0); MONO % 5.7 % (0.0-8.0); MONOCYTE # 0.4 TH/MM3 (0-0.9); NEUT % 69.5 % (16.0-70.0); PLATELET COUNT 264 TH/MM3 (150-450); RED BLOOD COUNT 4.77 MIL/MM3 (4.00-5.30); RED CELL DISTRIBUTION WIDTH 14.1 % (11.6-17.2); WHITE BLOOD COUNT 7.3 TH/MM3 (4.0-11.0)
[2018-03-10] MEDS ORDERED: KETAMINE HCL 50 MG/5 ML SYRINGE ONE (13:19)
[2018-03-10] MEDS ORDERED: ACETAMINOPHEN 1000 MG/100 ML 100 ML IV ONE (13:19)
[2018-03-10] MEDS ORDERED: LIDOCAINE HCL 2% 20 ML VIAL ONE (13:19)
[2018-03-10] MEDS ORDERED: Post-op Orders (for Pharmacy) XX ONE (15:15)
[2018-03-10] MEDS ORDERED: ACETAMINOPHEN/HYDROcodone 325 MG/5 MG TAB PO PRN ×2 (15:15)
[2018-03-10] MEDS ORDERED: POTASSIUM CHLOR 40 MEQ PREMIX 100 ML IV PRN (15:15)
[2018-03-10] MEDS ORDERED: KETOROLAC TROMETHAMINE 30 MG/ML (IVP) VIAL IVP PRN (15:15)
[2018-03-10] MEDS ORDERED: MORPHINE SULFATE 30 MG/30 ML PCA IV SCH (15:15)
[2018-03-10] MEDS ORDERED: ENALAPRILAT 1.25 MG/ML VIAL IV PUSH PRN (15:15)
[2018-03-10] MEDS ORDERED: DEXTROSE 50% IN WATER 50 ML VIAL(D50) IV PUSH PRN (15:15)
[2018-03-10] MEDS ORDERED: BENZOCAINE 6 MG/MENTHOL 10 MG LOZENGE BUCCAL PRN (15:15)
[2018-03-10] MEDS ORDERED: SODIUM CHLORIDE 0.9% FLUSH 10 ML FLUSH IV FLUSH PRN (15:15)
[2018-03-10] MEDS ORDERED: GLUCAGON 1 MG/ML VIAL OTHER PRN (15:15)
[2018-03-10] MEDS ORDERED: NALOXONE HCL 0.4 MG/ML AMP IV PUSH PRN (15:15)
[2018-03-10] MEDS ORDERED: POTASSIUM CHLOR 20 MEQ PREMIX 100 ML IV PRN (15:15)
[2018-03-10] MEDS ORDERED: DO NOT ADM ANY ANTICOAGULANT DRUGS PRN (15:17)
[2018-03-10] MEDS ORDERED: MIDAZOLAM HCL 2 MG/2 ML VIAL ONE (15:27)
[2018-03-10] MEDS ORDERED: *morphine SULFATE 8 MG/ML PERIprocedure ONLY ONE (15:29)
[2018-03-10] MEDS ORDERED: ONDANSETRON ODT 4 MG TAB PO PRN (15:45)
[2018-03-10] MEDS ORDERED: ePHEDrine/NS 25 MG/5 ML SYRINGE ONE (15:51)
[2018-03-10] MEDS: POTASSIUM CHLORIDE INJ 20 MEQ in LACTATED RINGER'S 1000 ML INJ 1,000 ML IV SCH ×2 (16:00→22:44)
[2018-03-10] MEDS ORDERED: *morphine SULFATE 4 MG/ML PERIprocedure ONLY ONE (16:07)
[2018-03-10] MEDS: DEXT 5%-NACL 0.9% 1000 ML INJ 1,000 ML IV SCH ×2 (16:23→20:00)
[2018-03-10 16:30] VITALS: O2SAT 100
[2018-03-10] MEDS: INSULIN NovoLIN REGULAR SUPPLEMENTAL SCALE SQ SCH ×2 (17:00→21:00)
[2018-03-10 17:31] VITALS: BP 106/55; PULSE 58; RESP 18; TEMP 97.5; O2SAT 98
[2018-03-10] MEDS: METOCLOPRAMIDE HCL 10 MG/2 ML VIAL IVS SCH ×2 (18:01→23:45)
[2018-03-10 20:00] VITALS: BP 124/62; PULSE 80; RESP 19; TEMP 97.2; O2SAT 96
[2018-03-10 20:52] LABS: BICARBONATE 25.2 MEQ/L (21.0-32.0); CALCIUM 8.8 MG/DL (8.5-10.1); CREATININE 0.97 MG/DL (0.50-1.00)
[2018-03-10 20:56] LABS: AUTOMATED NEUTROPHIL # 11.2 TH/MM3 (1.8-7.7); BASOPHIL % 0.1 % (0.0-2.0); HEMATOCRIT 40.4 % (35.0-46.0); HEMOGLOBIN 13.4 GM/DL (11.6-15.3); LYMPH % 4.4 % (9.0-44.0); LYMPHOCYTE # 0.5 TH/MM3 (1.0-4.8); MEAN CELL VOLUME 88.5 FL (80.0-100.0); MEAN CORPUSCULAR HEMOGLOBIN 29.4 PG (27.0-34.0); MEAN CORPUSCULAR HGB CONC 33.3 % (32.0-36.0); MONO % 1.2 % (0.0-8.0); MONOCYTE # 0.1 TH/MM3 (0-0.9); NEUT % 94.3 % (16.0-70.0); PLATELET COUNT 248 TH/MM3 (150-450); RED BLOOD COUNT 4.57 MIL/MM3 (4.00-5.30); WHITE BLOOD COUNT 11.8 TH/MM3 (4.0-11.0)
[2018-03-10] MEDS ORDERED: ZOLPIDEM TARTRATE 5 MG TAB PO PRN (21:00)
[2018-03-10] MEDS: PCA - TOTAL MG MORPHINE DELIVERED PER SHIFT SCH (21:24)
[2018-03-10] MEDS: SODIUM CHLORIDE 0.9% FLUSH 10 ML FLUSH IV FLUSH SCH (21:25)
[2018-03-10] MEDS: ceFAZolin 2 GM PREMIX 50 ML IV SCH (21:25)
[2018-03-10] MEDS: metroNIDAZOLE 500 MG INJ 100 ML IV SCH (21:28)
[2018-03-11] VITALS (8 sets, daily range): BP systolic 106–135; BP diastolic 54–62; PULSE 71–100; RESP 16–20; TEMP 97.3–97.9; O2SAT 95–97
[2018-03-11] MEDS: DEXT 5%-NACL 0.9% 1000 ML INJ 1,000 ML IV SCH (04:00)
[2018-03-11] MEDS: ceFAZolin 2 GM PREMIX 50 ML IV SCH ×2 (04:31→12:05)
[2018-03-11] MEDS: PCA - TOTAL MG MORPHINE DELIVERED PER SHIFT SCH ×3 (04:33→22:00)
[2018-03-11] MEDS: METOCLOPRAMIDE HCL 10 MG/2 ML VIAL IVS SCH ×3 (04:34→17:55)
[2018-03-11] MEDS: metroNIDAZOLE 500 MG INJ 100 ML IV SCH ×2 (04:34→14:22)
[2018-03-11] MEDS: LEVOTHYROXINE SODIUM 50 MCG TAB PO SCH (04:34)
[2018-03-11] MEDS: POTASSIUM CHLORIDE INJ 20 MEQ in LACTATED RINGER'S 1000 ML INJ 1,000 ML IV SCH ×2 (04:36→14:45)
[2018-03-11 07:41] LABS: AUTOMATED NEUTROPHIL # 12.4 TH/MM3 (1.8-7.7); BASOPHIL % 0.1 % (0.0-2.0); HEMATOCRIT 41.3 % (35.0-46.0); HEMOGLOBIN 13.8 GM/DL (11.6-15.3); LYMPH % 8.5 % (9.0-44.0); LYMPHOCYTE # 1.2 TH/MM3 (1.0-4.8); MEAN CELL VOLUME 87.5 FL (80.0-100.0); MEAN CORPUSCULAR HEMOGLOBIN 29.2 PG (27.0-34.0); MEAN CORPUSCULAR HGB CONC 33.4 % (32.0-36.0); MEAN PLATELET VOLUME 7.7 FL (7.0-11.0); MONO % 5.5 % (0.0-8.0); MONOCYTE # 0.8 TH/MM3 (0-0.9); NEUT % 85.9 % (16.0-70.0); PLATELET COUNT 270 TH/MM3 (150-450); RED BLOOD COUNT 4.72 MIL/MM3 (4.00-5.30); RED CELL DISTRIBUTION WIDTH 14.2 % (11.6-17.2); WHITE BLOOD COUNT 14.4 TH/MM3 (4.0-11.0)
[2018-03-11] MEDS: INSULIN NovoLIN REGULAR SUPPLEMENTAL SCALE SQ SCH ×4 (08:00→20:41)
--- NOTE | 2018-03-11 08:08 | HHI.PR ---
Subjective Remarks No N or V. No BMs yet. C/O incisional pain. Objective Vital Signs Date Time Temp Pulse Resp B/P (MAP) Pulse Ox O2 Delivery O2 Flow Rate FiO2 03/11/18 04:33 18 03/11/18 04:00 97.3 100 18 131/62 (85) 97 03/11/18 00:00 97.4 95 19 112/58 (76) 96 03/10/18 21:24 22 03/10/18 20:00 97.2 80 19 124/62 (82) 96 03/10/18 17:31 97.5 58 18 106/55 (72) 98 03/10/18 16:45 97.5 58 20 125/59 (81) 100 Nasal Cannula 2 03/10/18 16:30 99.0 56 20 108/53 (71) 100 Nasal Cannula 2 03/10/18 16:24 16 03/10/18 16:15 99.0 53 20 116/58 (77) 100 Nasal Cannula 2 03/10/18 16:00 99.0 51 20 101/56 (71) 100 Nasal Cannula 2 03/10/18 15:55 99.0 51 20 105/56 (72) 100 Nasal Cannula 4 03/10/18 15:54 99.0 51 20 94/54 (67) 100 Nasal Cannula 4 03/10/18 15:52 99.0 50 16 73/34 (47) 100 Nasal Cannula 4 03/10/18 15:46 99.0 46 16 75/41 (52) 100 Nasal Cannula 4 03/10/18 15:45 99.0 48 16 77/41 (53) 100 Nasal Cannula 4 03/10/18 15:30 99.0 56 16 78/43 (55) 100 Nasal Cannula 4 03/10/18 15:15 99.0 80 16 98/53 (68) 97 Nasal Cannula 4 03/10/18 11:45 98.2 85 20 166/88 (114) 97 I/O 03/10/18 03/10/18 03/10/18 03/11/18 03/11/18 03/11/18 06:59 14:59 22:59 06:59 14:59 22:59 Intake Total 200 ml 4900 ml 390 ml Output Total 50 ml 250 ml Balance 200 ml 4850 ml 140 ml Intake Oral 0 ml 240 ml IV Total 200 ml 3300 ml 150 ml Other 1600 ml Output Urine Total 250 ml Estimated Blood Loss 50 ml Bladder Scan Volume Amount 71 ml Result Diagram: 03/11/18 0718 03/10/181999 Objective Remarks VS-S Abd: soft,dressing dry. I&Os- Not accurate. Pt is not recording urine volume. Labs-OK Assessment and Plan Assessment and Plan Stable POD#1 Full liquids today. Regular diet in AM tomorrow. Decrease IVs. Alvaro Marte MD March 11, 2018 08:08
[2018-03-11 08:12] LABS: BICARBONATE 28.4 MEQ/L (21.0-32.0); CALCIUM 8.8 MG/DL (8.5-10.1); CREATININE 0.84 MG/DL (0.50-1.00)
[2018-03-11] MEDS: SODIUM CHLORIDE 0.9% FLUSH 10 ML FLUSH IV FLUSH SCH ×2 (08:57→20:41)
[2018-03-11] MEDS: PANTOPRAZOLE SODIUM 40 MG VIAL IVP SCH (08:58)
[2018-03-11] MEDS: ALVIMOPAN 12 MG CAPSULE - Post-op dosing PO SCH ×2 (08:58→20:37)
[2018-03-11] MEDS: ASPIRIN 325 MG TAB PO SCH (08:58)
[2018-03-11] MEDS: ATORVASTATIN 40 MG TAB PO SCH (08:58)
[2018-03-11] MEDS: HEPARIN SODIUM - SQ 10,000 UNITS/ML VIAL SQ SCH (15:51)
[2018-03-11] MEDS ORDERED: ALVIMOPAN 12 MG CAPSULE PO SCH (21:00)
[2018-03-12] VITALS: BP 132/60; PULSE 98; RESP 18; TEMP 98.9; O2SAT 93
[2018-03-12] MEDS: METOCLOPRAMIDE HCL 10 MG/2 ML VIAL IVS SCH ×3 (01:38→12:59)
[2018-03-12] MEDS: HEPARIN SODIUM - SQ 10,000 UNITS/ML VIAL SQ SCH ×2 (01:39→09:14)
[2018-03-12 04:00] VITALS: BP 153/70; PULSE 93; RESP 18; TEMP 98.4; O2SAT 92
[2018-03-12] MEDS: LEVOTHYROXINE SODIUM 50 MCG TAB PO SCH (04:36)
[2018-03-12] MEDS: POTASSIUM CHLORIDE INJ 20 MEQ in LACTATED RINGER'S 1000 ML INJ 1,000 ML IV SCH (04:37)
[2018-03-12] MEDS: PCA - TOTAL MG MORPHINE DELIVERED PER SHIFT SCH (04:37)
[2018-03-12 06:02] LABS: AUTOMATED NEUTROPHIL # 5.5 TH/MM3 (1.8-7.7); BASOPHIL % 0.3 % (0.0-2.0); EOSINOPHIL # 0.1 TH/MM3 (0-0.4); EOSINOPHIL % 0.8 % (0.0-4.0); HEMATOCRIT 36.8 % (35.0-46.0); HEMOGLOBIN 12.4 GM/DL (11.6-15.3); LYMPH % 24.5 % (9.0-44.0); MEAN CELL VOLUME 88.5 FL (80.0-100.0); MEAN CORPUSCULAR HEMOGLOBIN 29.9 PG (27.0-34.0); MEAN CORPUSCULAR HGB CONC 33.8 % (32.0-36.0); MEAN PLATELET VOLUME 7.9 FL (7.0-11.0); MONO % 7.4 % (0.0-8.0); MONOCYTE # 0.6 TH/MM3 (0-0.9); PLATELET COUNT 218 TH/MM3 (150-450); RED BLOOD COUNT 4.16 MIL/MM3 (4.00-5.30); RED CELL DISTRIBUTION WIDTH 14.4 % (11.6-17.2); WHITE BLOOD COUNT 8.1 TH/MM3 (4.0-11.0)
[2018-03-12 06:17] LABS: BICARBONATE 28.3 MEQ/L (21.0-32.0); CALCIUM 8.7 MG/DL (8.5-10.1); CREATININE 0.81 MG/DL (0.50-1.00)
[2018-03-12 08:00] VITALS: BP 132/60; PULSE 92; RESP 18; TEMP 97.4; O2SAT 96
[2018-03-12] MEDS: INSULIN NovoLIN REGULAR SUPPLEMENTAL SCALE SQ SCH ×2 (08:00→13:00)
--- NOTE | 2018-03-12 08:10 | MP ---
cc: Alvaro Marte MD DATE OF OPERATION: 03/10/2018 DATE OF PROCEDURE: 03/10/2018 PREOPERATIVE DIAGNOSIS: Diverting loop ileostomy. POSTOPERATIVE DIAGNOSIS: Diverting loop ileostomy. PROCEDURE PERFORMED: Small bowel resection with closure of ileostomy. ANESTHESIA: General endotracheal. SURGEON: Alvaro Marte MD INTEGRATED CIRCUIT DESIGN ENGINEER: Khang Briseno MD ESTIMATED BLOOD LOSS: 30 mL. OPERATIVE FINDINGS: This patient had a diverting ileostomy for a low anterior resection. The patient returns now for closure of her ileostomy. At surgery, an exploration of the abdominal cavity was limited due to the limited incision required to close the ileostomy and resect the small bowel. The stoma was resected and a small bowel anastomosis was done. OPERATIVE TECHNIQUE: The patient was placed on the table in the supine position. After adequate general endotracheal anesthesia, a vertical elliptical incision was made around the stoma, taken down through the subcutaneous tissue to the fascia and the small bowel was dissected free of the fascia. The small bowel loops were freed. There were some adhesions intra-abdominally and these were freed with lysis of the adhesions with sharp dissection and electrocautery. The proximal bowel was divided with an Ethicon CHRISTINA 55 stapling device and the mesentery was clamped, cut, and ligated. The distal small bowel was divided between Carlito clamps and the specimen was removed from the table. anastomosis was done along the antimesenteric borders of the small bowel using the Ethicon CHRISTINA 55 stapling device and then the enterotomy was closed with a TX 60 blue staple height stapling device and the area was checked for hemostasis. The opening in the mesentery was approximated with several 3-0 Vicryl sutures. Once this was done and hemostasis was achieved, the bowel was replaced in the abdominal cavity. The abdominal cavity was then closed in layers using a single strand #1 PDS for the posterior rectus sheath and another one for the anterior rectus sheath and then the subcutaneous tissue was irrigated thoroughly with saline solution and aspirated dry. Skin was closed with running 3-0 Vicryl subcuticular suture and a dressing was applied. Sponge, needle and instrument counts were reported as correct. The estimated blood loss was 30 mL. The patient tolerated the procedure well and left the operating room in good condition. MD NIKKY Pagan/CHANEL , 07:50 AM , 08:08 AM
[2018-03-12] MEDS: SODIUM CHLORIDE 0.9% FLUSH 10 ML FLUSH IV FLUSH SCH (08:15)
[2018-03-12] MEDS: ATORVASTATIN 40 MG TAB PO SCH (09:13)
[2018-03-12] MEDS: ASPIRIN 325 MG TAB PO SCH (09:13)
[2018-03-12] MEDS: PANTOPRAZOLE SODIUM 40 MG VIAL IVP SCH (09:14)
[2018-03-12] MEDS: ALVIMOPAN 12 MG CAPSULE - Post-op dosing PO SCH (09:14)
[2018-03-12 12:00] VITALS: BP 144/68; PULSE 94; RESP 17; TEMP 97.7; O2SAT 96
--- NOTE | 2018-03-12 13:25 | HHI.DCPOC ---
Discharge Care Plan Diagnosis: (1) Ileostomy closure (2) Ileostomy in place Your Health Problems Are: Incision/Drains Appetite Changes Irregular Bowel Function Exercise Tolerance Goals to Promote Your Health * To prevent worsening of your condition and complications * To maintain your health at the optimal level Directions to Meet Your Goals Take your medications as prescribed Follow your dietary instruction Follow activity as directed Keep your appointments as scheduled Take your immunizations and boosters as scheduled If your symptoms worsen call your PCP, if no PCP go to Urgent Care Center or Emergency Room Smoking is Dangerous to Your Health. Avoid second hand smoke Call the 24-hour hour crisis hotline for domestic abuse at Alvaro Marte MD March 12, 2018 13:25
--- NOTE | 2018-03-12 13:41 | HHI.PR ---
Subjective Remarks No N or V. No BMs yet. Less incisional pain. Wants to go home. Objective Vital Signs Date Time Temp Pulse Resp B/P (MAP) Pulse Ox O2 Delivery O2 Flow Rate FiO2 03/12/18 12:00 97.7 94 17 144/68 (93) 96 03/12/18 11:05 2.00 03/12/18 08:00 97.4 92 18 132/60 (84) 96 03/12/18 04:00 98.4 93 18 153/70 (97) 92 03/12/18 00:00 98.9 98 18 132/60 (84) 93 03/11/18 20:52 95 Nasal Cannula 2.00 03/11/18 20:00 97.9 88 20 135/61 (85) 96 03/11/18 16:00 97.7 82 17 119/57 (77) 95 03/11/18 14:00 16 I/O 03/11/18 03/11/18 03/11/18 03/12/18 03/12/18 03/12/18 07:00 15:00 23:00 07:00 15:00 23:00 Intake Total 390 ml 1150 ml 2400 ml 1250 ml Output Total 250 ml Balance 140 ml 1150 ml 2400 ml 1250 ml Intake Oral 240 ml 2400 ml 240 ml IV Total 150 ml 1150 ml 1010 ml Output Urine Total 250 ml # Voids 6 3 # Bowel Movements 0 Result Diagram: 03/12/1842003/12/18 042 Objective Remarks VS-S Abd: soft,dressing removed. Wound clean and dry I&Os- Not accurate.No u/o recorded Labs-OK Assessment and Plan Assessment and Plan Stable POD#2 Tolerating Regular diet. Decrease IVs. Wants to go home. D/C today. Anticipating BMs soon. Instructions given. Alvaro Marte MD March 12, 2018 13:41
--- NOTE | 2018-03-18 12:56 | MD ---
cc: Alvaro Marte MD DATE OF DISCHARGE: 03/12/2018 ADMITTING DIAGNOSIS: Diverting loop ileostomy. DISCHARGE DIAGNOSIS: Diverting loop ileostomy. OPERATIVE PROCEDURE: 03/10/2018, small bowel resection with closure of ileostomy. HISTORY: This patient had diverting ileostomy for a low anterior resection. The patient returns now for closure of the ileostomy. HOSPITAL COURSE: The patient was admitted to the hospital on 03/10/2018, underwent a small bowel resection and closure of ileostomy. On the first postoperative day, she was started on full liquid diet. On the second postoperative day, she was started on a regular diet. She was discharged from the hospital on the second postoperative day, in good condition. She was instructed to do no driving for 2 weeks, do no heavy lifting over 10 pounds for 6 weeks. She was instructed to call me with any problems. She was instructed to followup with me in 2 weeks in the office and to use hydrocodone for pain, which I gave her. Alvaro Marte MD JTT/TL , 12:46 PM , 12:55 PM
== END 2018-03-12 15:10 | disposition home or self-care (01) | DRG 331 ==
LOC: HSDI 11:03 → N07B 17:07
PROVIDERS: ADMIT Colon & Rectal Surgery; ATTEND Colon & Rectal Surgery
PROC: 0DT80ZZ Resection of Small Intestine, Open Approach (ICD-10-PCS; 2018-03-10)
PROC: 0DBB0ZZ Excision of Ileum, Open Approach (ICD-10-PCS; principal; 2018-03-10 13:52)
DX: Z43.2 Encounter for attention to ileostomy (principal)
CPT/HCPCS: 80048; 82948; 85025; 86850; 86900; 86901; 88304; 88305; 94150; C9113; J0131; J0690; J1100; J1644; J2250; J2270; J2405; J2710; J2765; J3010; J3480; J7042; J7120